=== PATIENT | male | born 1980 | race Two or more races ===

== ENCOUNTER 2016-11-23 14:23 | Emergency (ER) | payer BC, OTHER ==
[~2016-11-23] VITALS: Ht 177.8 cm; Wt 120.2 kg
[2016-11-23] MEDS ORDERED: HYDROmorphone HCL 2 MG/ML VL IV ONE (16:45)
[2016-11-23] MEDS ORDERED: ONDANSETRON HCL 4 MG/2 ML VIAL IV ONE (16:45)
[2016-11-23 17:26] VITALS: BP 123/88
== END 2016-11-23 18:11 | disposition home or self-care (01) ==
LOC: ER 14:24
DX: S22.42XA Multiple fractures of ribs, left side, initial encounter for closed fracture (principal); M79.641 Pain in right hand; V86.99XA Unspecified occupant of other special all-terrain or other off-road motor vehicle injured in nontraffic accident, initial encounter; Y93.55 Activity, bike riding; Y99.8 Other external cause status; Y92.89 Other specified places as the place of occurrence of the external cause
CPT/HCPCS: 71250; 73130; 74176; 93005; 96374; 96375; 99284; J1170; J2405; J7030